=== PATIENT | female | born 1950 | race Caucasian/White ===

== ENCOUNTER 2018-03-22 13:45 | Outpatient (CLI) | payer MEDICARE, BC ==
--- NOTE | 2018-03-23 15:18 | Mammography Report ---
Reason: SCREENING MAMMO Procedure Date: 03/22/2018 Accession Number: [id number] / [id number] Procedure: [facility] - Screening Mammo Dig Bilat CPT Code: FULL RESULT: EXAM: Screening Mammo Dig Bilat DATE: 03/22/2018 12:00 AM CLINICAL HISTORY: Screening mammogram TECHNIQUE: Bilateral CC and MLO views were obtained. COMPARISON: Mammogram 01/16/2014 FINDINGS: The breast parenchyma is extremely dense which may limit the sensitivity of mammography. There are benign-appearing lymph nodes. No suspicious masses, clustered microcalcifications, or regions of architectural distortion are identified. IMPRESSION: Benign findings RECOMMENDATION: Routine annual screening unless otherwise clinically indicated. BIRADS CATEGORY 2: Benign findings STANDARD QUALIFYING STATEMENTS: 1. This examination was reviewed with the aid of Computer-Aided Detection (CAD). 2. A negative or benign imaging report should not delay biopsy if clinically suspicious findings are present. Consider surgical consultation if warrented. More than 5% of cancers are not identified by imaging. 3. Dense breasts may obscure an underlying neoplasm.
== END 2018-03-22 13:46 | disposition home or self-care (01) ==
LOC: DI.S 13:45
PROVIDERS: ATTEND Family Medicine
DX: Z12.31 Encounter for screening mammogram for malignant neoplasm of breast (principal)
CPT/HCPCS: 77067

== ENCOUNTER 2018-11-02 10:56 | Outpatient (CLI) | payer MEDICARE, BC ==
--- NOTE | 2018-11-02 13:45 | Mammography Report ---
Reason: RT BREAST LUMP Procedure Date: 11/02/2018 Accession Number: [id number] / [id number] Procedure: [facility] - Diagnostic Dig RT CPT Code: FULL RESULT: EXAM: Diagnostic Dig RT DATE: 11/02/2018 1:10 PM CLINICAL HISTORY: Diagnostic mammogram. The patient presents with a palpable nodule in the right upper outer breast. TECHNIQUE: (R) - Right CC and MLO views were obtained. Additional right ML and right spot ML as well as spot CC images are obtained. Focused right breast ultrasound is performed. COMPARISON: 03/22/2018 through 12/12/2010. PARENCHYMAL PATTERN: (D) - The breast(s) demonstrate(s) heterogeneously dense fibroglandular parenchyma. FINDINGS: Corresponding to the palpable marker on the right breast mammogram is a 0.7 cm isodense partially obscured nodule best seen on CC image 14 and also likely on MLO image 22, approximately 9.5 cm from the nipple. Focused right breast ultrasound demonstrates a hypoechoic 0.8 cm nodule at the right breast 9:00 position which is as tall as it is wide and has somewhat irregular borders, suspicious. IMPRESSION: Suspicious findings. BI-RADS category 4. RECOMMENDATION: (BIOPSY) - with ultrasound guidance. BI-RADS CATEGORY: (4) - Suspicious. STANDARD QUALIFYING STATEMENTS: 1. This examination was not reviewed with the aid of Computer-Aided Detection (CAD). 2. A negative or benign imaging report should not preclude biopsy if clinically suspicious findings are present. 3. Dense breasts may obscure an underlying neoplasm. 4. This examination was reviewed with the aid of 3D breast imaging (tomosynthesis).
== END 2018-11-02 10:57 | disposition home or self-care (01) ==
LOC: DI 10:56
PROVIDERS: ATTEND Nurse Practitioner Family
DX: N63.11 Unspecified lump in the right breast, upper outer quadrant (principal)
CPT/HCPCS: 76642

== ENCOUNTER 2019-10-18 16:12 | Outpatient (CLI) | payer MEDICARE, BC | END 2019-10-18 16:13 | disposition short-term general hospital (02) | LOC: EMS 16:12 | PROVIDERS: ATTEND Surgery | DX: S89.91XA Unspecified injury of right lower leg, initial encounter (principal); S69.91XA Unspecified injury of right wrist, hand and finger(s), initial encounter; W17.89XA Other fall from one level to another, initial encounter; Y93.H2 Activity, gardening and landscaping; Y92.007 Garden or yard of unspecified non-institutional (private) residence as the place of occurrence of the external cause | CPT/HCPCS: A0425; A0427 ==

== ENCOUNTER 2020-11-01 10:15 | Outpatient (CLI) | payer MEDICARE, BC ==
[2020-11-01 15:37] LABS: ALBUMIN 4.7 g/dL (3.2-5.5); ALBUMIN/GLOBULIN RATIO 1.4 (1.0-2.2); BILIRUBIN,TOTAL 0.6 mg/dL (0.2-1.0); CREATININE 0.7 mg/dL (0.4-1.0); POTASSIUM 4.2 mmol/L (3.5-5.0); TOTAL PROTEIN 8.1 g/dL (6.7-8.2)
== END 2020-11-01 10:16 | disposition home or self-care (01) ==
LOC: LAB.S 10:15
PROVIDERS: ATTEND Internal Medicine
DX: C50.111 Malignant neoplasm of central portion of right female breast (principal); Z17.0 Estrogen receptor positive status [ER+]
CPT/HCPCS: 36415; 80053

== ENCOUNTER 2021-04-29 10:15 | Outpatient (CLI) | payer MEDICARE, BC ==
[2021-04-29 14:50] LABS: ALBUMIN 4.4 g/dL (3.2-5.5); ALBUMIN/GLOBULIN RATIO 1.2 (1.0-2.2); BILIRUBIN,TOTAL 0.8 mg/dL (0.2-1.0); CALCIUM 9.5 mg/dL (8.5-10.3); CREATININE 0.7 mg/dL (0.4-1.0); POTASSIUM 4.2 mmol/L (3.5-5.0)
== END 2021-04-29 10:16 | disposition home or self-care (01) ==
LOC: LAB.S 10:15
PROVIDERS: ATTEND Internal Medicine
DX: C50.111 Malignant neoplasm of central portion of right female breast (principal); Z17.0 Estrogen receptor positive status [ER+]
CPT/HCPCS: 36415; 80053

== ENCOUNTER 2021-10-25 10:35 | Outpatient (CLI) | payer MEDICARE, BC ==
[2021-10-25 15:15] LABS: ALBUMIN 4.2 g/dL (3.2-5.5); ALBUMIN/GLOBULIN RATIO 1.2 (1.0-2.2); BILIRUBIN,TOTAL 0.4 mg/dL (0.2-1.0); CALCIUM 9.3 mg/dL (8.5-10.3); CREATININE 0.6 mg/dL (0.4-1.0); POTASSIUM 4.4 mmol/L (3.5-5.0); TOTAL PROTEIN 7.7 g/dL (6.7-8.2)
== END 2021-10-25 10:36 | disposition home or self-care (01) ==
LOC: LAB.S 10:35
PROVIDERS: ATTEND Internal Medicine
DX: C50.111 Malignant neoplasm of central portion of right female breast (principal); Z17.0 Estrogen receptor positive status [ER+]
CPT/HCPCS: 36415; 80053

== ENCOUNTER 2021-11-11 11:04 | Outpatient (CLI) | payer MEDICARE, BC ==
[2021-11-11 18:32] LABS: THYROID STIMULATING HORMONE 2.56 uIU/mL (0.34-5.60)
[2021-11-11 18:54] LABS: ALBUMIN 4.6 g/dL (3.2-5.5); ALBUMIN/GLOBULIN RATIO 1.4 (1.0-2.2); ALKALINE PHOSPHATASE 62 IU/L (42-121); ALT ALANINE AMINOTRANSFERASE 20 IU/L (10-60); AST ASPARTATE AMINOTRANSFERASE 29 IU/L (10-42); BILIRUBIN,TOTAL 0.8 mg/dL (0.2-1.0); BUN - BLOOD UREA NITROGEN 13 mg/dL (6-20); CALCIUM 9.9 mg/dL (8.5-10.3); CARBON DIOXIDE - CO2 22 mmol/L (21-32); CHLORIDE 99 mmol/L (101-111); CHOL/HDL RATIO 2.6 (<4.4); CHOLESTEROL 297 mg/dL; CREATININE 0.7 mg/dL (0.4-1.0); GFR - MDRD 82 (>89); GLUCOSE 86 mg/dL (70-100); HDL CHOLESTEROL 113 mg/dL; LDL CHOLESTEROL,CALCULATED 165 mg/dL; LDL/HDL RATIO 1.5 (<4.4); POTASSIUM 4.6 mmol/L (3.5-5.0); SODIUM 135 mmol/L (135-145); TRIGLYCERIDES 94 mg/dL; VLDL CHOLESTEROL 19 mg/dL
== END 2021-11-11 11:05 | disposition home or self-care (01) ==
LOC: LAB.S 11:04
PROVIDERS: ATTEND Nurse Practitioner Family
DX: E78.5 Hyperlipidemia, unspecified (principal)
CPT/HCPCS: 36415; 80053; 80061; 83721; 84443

== ENCOUNTER 2024-03-11 11:02 | Outpatient (CLI) | payer MEDICARE, BC ==
--- NOTE | 2024-03-11 11:53 | XRAY Report ---
PROCEDURE: Foot 3+V RT INDICATIONS: CONTUSION OF RIGHT LESSER TOE TECHNIQUE: 3 views of the foot were acquired. COMPARISON: None. FINDINGS: Bones: No fractures or dislocations. No suspicious bony lesions. No significant degenerative change . Soft tissues: No tibiotalar joint effusion. Achilles tendon appears normal. IMPRESSION: No acute bony abnormality. Reviewed by: Joey Smith MD on 03/11/2024 11:51 AM PDT Approved by: Joey Smith MD on 03/11/2024 11:51 AM PDT Station ID: [id number]
== END 2024-03-11 11:03 | disposition home or self-care (01) ==
LOC: DI 11:02
PROVIDERS: ATTEND Physician Assistant
DX: S90.121A Contusion of right lesser toe(s) without damage to nail, initial encounter (principal)